=== PATIENT | male | born 1940 | race Caucasian/White ===

== ENCOUNTER 2017-05-26 01:06 | Day surgery (SDC) | payer MEDICARE ==
[2017-05-26] VITALS (12 sets, daily range): BP systolic 118–156; BP diastolic 66–81; PULSE 26–63; RESP 12–20; O2SAT 95–100
[~2017-05-26] VITALS: Ht 170.2 cm; Wt 79.8 kg
[~2017-05-26 01:06] MED LIST: ATRV10T PO; CHOL500011 PO; LUTE20CA8 PO; OMEG500C PO; PSYL798P2 PO; RIVA20TA PO; SELE200C PO; TRIA0.2525 PO; UBID100T7 PO; VIT1CAPS10 PO; VIT1TABL83 PO
[2017-05-26 09:38] LABS: BASOPHILS % (AUTO) 1.9 % (0-3); EOSINOPHILS % (AUTO) 1.4 % (0-5); MONOCYTES % (AUTO) 12.1 % (4-12); Mean Corpuscular Volume 89.1 fL (81-100); NEUTROPHILS % (AUTO) 54.2 % (40-74); Platelet Count 193 bil/L (150-400)
[2017-05-26 09:55] LABS: INR 1.03 ratio
[2017-05-26] MEDS ORDERED: CeFAZolin 2 Gm/50 mL D5W Duplex Bag IV ONE (10:45)
[2017-05-26] MEDS ORDERED: 0.9% Sodium Chloride 1,000 ML IV ONE (10:45)
[2017-05-26] MEDS ORDERED: CeFAZolin Inj 2 GM in IV Premix 1 EACH IV SCH (10:53)
--- NOTE | 2017-05-26 11:01 | NUR ---
Admitted for a cardiac ablation for SVT -admits in atrial flutter with a type 2 mobitz rhythm - rate is 29. 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 Patient and , "Yung" have spoken to Dr Epps about today's procedure and pacemaker rate.
[2017-05-26] MEDS ORDERED: Heparin 10,000 Unit/1,000 mL NS Premix IV ONE ×2 (11:07→13:39)
[2017-05-26] MEDS ORDERED: Heparin 1,000 Unit/mL 10 mL Inj ONE (11:08)
[2017-05-26] MEDS ORDERED: 0.9% Sodium Chloride 250 ML ONE (11:09)
[2017-05-26] MEDS ORDERED: fentaNYL-PF 50 mCg/mL 2 mL Inj ONE (12:05)
[2017-05-26] MEDS ORDERED: Bupivacaine-MPF 0.5% 30 mL Inj ONE (14:41)
[2017-05-26] MEDS ORDERED: Ondansetron 2 mg/mL 2 mL Inj IVPUSH PRN (15:25)
[2017-05-26] MEDS ORDERED: HYDROcodone-APAP 5-325 mg Tablet PO PRN (15:25)
--- NOTE | 2017-05-26 18:11 | NUR ---
Received Received from rags laborer at 1740. Right groin 2 hours post manual hold. No bleeding or hematoma. VSS. Tele paced. Denies pain. Ice pack applied. EKG and CXR done. Taking po fluids well. at bedside. Groin and arm precautions reviewed and verbalizes understanding. Continue to monitor per orders.
--- NOTE | 2017-05-26 18:19 | PROCED ---
[address] [address] PROCEDURE NOTE PATIENT: WEI BURGESS : 1940 MR#: [id number] ADMIT: 05/26/2017 JOB ID: [id number] DATE OF SERVICE: 05/26/2017 PREOPERATIVE DIAGNOSIS(ES): 1. Typical counterclockwise isthmus dependent flutter. 2. Mobitz II atrioventricular block. POSTOPERATIVE DIAGNOSIS(ES): 1. Sinus rhythm. 2. Mobitz II atrioventricular block. PROCEDURES PERFORMED: 1. Comprehensive electrophysiology study with left atrial pacing recording via the coronary sinus catheter. 2. Three-dimensional electroanatomic mapping using the CARTO 3 system. 3. Atrial flutter ablation (supraventricular tachycardia ablation; cavotricuspid isthmus ablation). 4. Fluoroscopy. SURGEON: Akin Epps M.D. electrophysiology attending physician. FINANCIAL AID: Brady Saldana PA-C. ANESTHESIA: Bolus dosing of Versed and fentanyl titrated to an acceptable level of sedation. INDICATIONS: The patient is a pleasant 76-year-old man with preserved LV function and now persistent symptomatic isthmus dependent typical flutter. After discussion of risks and benefits of catheter based mapping and ablation, he opted to proceed. PROCEDURAL DESCRIPTION: Following informed and signed, the patient was taken to the EP laboratory in a fasting state where he was prepped and draped in usual sterile fashion. The right inguinal region was infiltrated with 1% lidocaine. Then, using modified Seldinger technique with the aid of the ultrasound and with a great deal of difficulty, one 8-7 and one 6-[place] sheaths were inserted through the right femoral vein. A deflectable decapolar catheter was advanced to the coronary sinus with the most proximal bipolar at the os of the sinus. A Jeffery quadripolar catheter was advanced to the RV apex and a LiveWire 20 pole catheter was used to encircle the tricuspid annulus. The patient was in atrial flutter at the onset of the case. A J curve Smart Touch irrigated ablation catheter was brought to the field and used to create a three-dimensional electroanatomical mapping of the cavotricuspid isthmus and right atrium. Entrainment from the cavotricuspid isthmus showed the isthmus to be within the circuit with a short post pacing interval minus tachycardia shock cycle length of 7 msec. A linear series of ablations was performed from the ventricular to the IVC aspect of the cavotricuspid isthmus. During the process of doing so, the patient's flutter broke to sinus rhythm with rare conduction. We paced him from the ventricle. We then tested block across the isthmus and found there to be conduction across the isthmus in both directions. High voltage electrograms were targeted and with a great deal of difficulty drawing both the medial and the lateral line ultimately bidirectional block was achieved. A 20 minute waiting period was undertaken during which bidirectional block was reconfirmed. During the course of this study, we did complete a comprehensive electrophysiology study with right atrial pacing recording, right ventricular recording and His bundle recording, and left atrium coronary sinus catheter. All catheters and sheaths were removed. The patient was in 2:1 AV block and was stable otherwise. We therefore did not leave any temporary pacing wires while we placed his permanent pacemaker. We turned the room around and prepared for a dual-chamber pacemaker implantation. See separate dictated report for the details of that procedure. COMPLICATIONS: None. ESTIMATED BLOOD LOSS: Negligible. FINDINGS: 1. Baseline rhythm is atrial flutter. Post ablation, he is in sinus rhythm with an RR interval of 1946 msec, 2:1 AV block, QRS 103 msec, QT 475 msec. 2. Intracardiac intervals: HV interval 51 msec. 3. Retrograde conduction. No VA conduction was seen. 4. Cavotricuspid isthmus ablation as described above with bidirectional block. Specifically transisthmus time was 190 msec in the medial to lateral direction and 186 msec in lateral to medial direction. IMPRESSION: Successful cavotricuspid isthmus with ablation for typical isthmus flutter with above-noted transisthmus time. PLAN: 1. Bed rest x4 hours. 2. Continue anticoagulation with Xarelto for at least one month. 3. Proceed to dual-chamber pacemaker implantation for Mobitz II AV block. ATTENDING STATEMENT: Akin Epps MD, electrophysiology attending, was present for and supervised/performed all aspects of this procedure.
--- NOTE | 2017-05-26 18:24 | DRSVH ---
PROCEDURE: X-RAY CHEST ONE VIEW, PORTABLE ([id number]) INDICATIONS: For new leads placed TECHNIQUE: One view of the chest was acquired. COMPARISON: [facility], , CHEST 2VW, 04/05/2007, 10:10. FINDINGS: Surgical changes and devices: There is a dual-lead cardiac pacemaker. Lungs and pleura: No pleural effusions or pneumothorax. Lungs are clear. Mediastinum: Mediastinal contours appear normal. Heart size is normal. Bones and chest wall: No suspicious bony lesions. Overlying soft tissues appear unremarkable. IMPRESSION: No pneumothorax after new lead placement. Dictated by: Grace Quinn M.D. on 05/26/2017 at 18:22 Approved by: Grace Quinn M.D. on 05/26/2017 at 18:22
--- NOTE | 2017-05-26 18:41 | OP ---
[address] [address] OPERATIVE REPORT PATIENT: WEI BURGESS : 1940 MR#: [id number] ADMIT: 05/26/2017 JOB ID: [id number] DATE OF SURGERY: 05/26/2017 PREOPERATIVE DIAGNOSIS(ES): Mobitz II atrioventricular block. POSTOPERATIVE DIAGNOSIS(ES): Mobitz II atrioventricular block. PROCEDURES PERFORMED: 1. Dual-chamber pacemaker implantation. 2. Fluoroscopy. SURGEON: Akin Epps M.D., electrophysiology attending. PRINT ROOM WORKER: MACKENZIE Oliva. IMPLANTED DEVICES: 1. [employer] pulse generator, model [id number], serial #[id number]. 2. Right atrial lead [employer] 1252 cm, serial #[id number]. 3. RV lead [employer] 1258 cm, serial #[id number]. ANESTHESIA: Bolus dosing of Versed and fentanyl were utilized for an appropriate level of sedation. INDICATION: The patient is a pleasant 76-year-old man with preserved LV function who just completed atrial flutter ablation. He has Mobitz II AV block and is here for a dual-chamber pacemaker implantation after discussion of the risks and benefits. PROCEDURE DESCRIPTION: Following informed consent, the patient was taken to the EP laboratory in a fasting nonsedated state where he was prepped and draped in the usual fashion. The left infraclavicular region was infiltrated with 40 cc of a 50/50 mixture of bupivacaine and lidocaine. Once adequate anesthesia had been achieved, a 3 cm transverse incision was performed 2 cm below the left clavicle. Dissection was carried to the pectoralis fascia and a pocket was then fashioned using a combination of electrocautery and blunt dissection. Once adequate hemostasis had been achieved, access was gotten to the left axillary vein over the first rib with a micropuncture needle to deploy a 0.035, 3 mm J guidewire. Attempts to re-access this vessel were unsuccessful and I therefore double wired the access site to deploy two 0.35 J guidewires. Over the first of these wires, an 8-Uzbek tear-away sheath was advanced. Once the guidewire was removed, an active fixation lead was advanced to the RV outflow tract and ultimately RV apex. The lead was affixed in position using associated active fixation screw. It was connected to the external analyzer and demonstrated appropriately sensed R waves, impedance. Capture was checked to 10 V and there was no evidence of diaphragmatic stimulation. Attention was now paid to placement of the right atrial lead. Over the previously deployed J guidewire, another 8-Uzbek tear-away sheath was advanced. Once the guidewire was removed, an active fixation lead was advanced to the right atrial appendage. It was affixed in position using associated active fixation screw. Stability in the right atrial appendage was very tenuous and the lead dislodged on multiple occasions. I therefore placed the lead in the low right lateral atrium with excellent sensing threshold and stable impedances. Once the position and redundancy of both leads had been confirmed in multiple views, the leads were anchored to the prepectoralis fascia using their associated anchoring sleeves . The pocket was then copiously irrigated with antibiotic solution. The leads were connected to a generator. The generator was placed in the pocket and affixed to the floor of the pocket using 1-0 Ti-Cron suture. The incision was closed with running layers of absorbable suture. The wound was dressed with skin adhesive and a small dressing. At the end of procedure, the needle, sponge, and instrument counts were all correct. COMPLICATIONS: None. ESTIMATED BLOOD LOSS: Negligible. DEVICE MEASURED DATA: 1. Right atrial lead 4.5 mV, 510 ohms, 0.5 V at 0.4 msec. 2. RV lead, paced at 40 beats per minute to 580 ohms, 0.5 V at 0.4 msec. FINAL PROGRAM PARAMETERS: DDD 45 beats per minute. IMPRESSION: Successful dual-chamber pacemaker implantation. PLAN: 1. Stat portable chest x-ray. 2. PA and lateral chest x-ray in the morning. 3. Device check in a.m. 4. IV Ancef as well as Keflex x7 days. 5. Wound check in one week. ATTENDING STATEMENT: IAkin MD, electrophysiology attending was present for and supervised/performed all aspects of this procedure.
[2017-05-26] MEDS: 0.9% Sodium Chloride 1,000 ML IV SCH ×2 (18:47→20:25)
--- NOTE | 2017-05-26 19:59 | NUR ---
Recovery/Transfer No change in assessment. VSS. 100% Vpaced. Denies pain. Report to Va Pichardo RN. Bedrest complete at 1944. Transported to 2027 via bed with all belongings and in no distress by staff at 1950.
[2017-05-26] MEDS: CeFAZolin Inj 1 GM in IV Premix 1 EACH IV SCH (21:12)
[2017-05-27 03:10] VITALS: BP 132/74; PULSE 47; RESP 16; O2SAT 98
[2017-05-27] MEDS: CeFAZolin Inj 1 GM in IV Premix 1 EACH IV SCH (04:30)
--- NOTE | 2017-05-27 05:35 | NUR ---
Groin and Pacer Sites Groin and pacer sites C/D/I to assessment, mild tenderness to groin and no tenderness to pacer. Instructions for self-care written on whiteboard, verbalized to patient, and given via booklet for additional reading. Pt and family verbalized understanding. No c/o pain or discomfort this shift, pt denies any dizziness/lightheadedness on exertion. VSS, tele V-paced 50s.
[2017-05-27 07:31] VITALS: BP 151/78; PULSE 49; RESP 16; O2SAT 100
[2017-05-27 07:35] VITALS: PULSE 49
--- NOTE | 2017-05-27 08:02 | PCM.DIMED ---
Discharge Instructions Date of Service May 27, 2017 Dates of Hospitalization Discharge Diagnosis Discharge Diagnosis Intermittent 2nd and 3rd Degree AV Block Persistent Atrial Flutter Marked Bradycardia - 28 bpm Hypertension Diet Discharge Diet: Heart Healthy Activity Discharge Activity: Other (Keep incision dry one day. Do not extend left elbow high above shoulder for one month. Do not lift, push or pull more than 10 lbs with the left arm for one month. Do not sit in a hot tub, bath tub or pool for one week. .) Call your provider Call your provider for: Fever or Chills, Bleeding, Excessive diarrhea Patient Instructions Follow-up in: 1 week Follow-up with Mid-level in: 6 weeks Brady Saldana PA-C May 27, 2017 08:02
[2017-05-27] MEDS ORDERED: CEPH500C PO (08:05)
[2017-05-27] MEDS ORDERED: HYDR-4003 PO (08:07)
--- NOTE | 2017-05-27 08:45 | DIS ---
[address] [address] DISCHARGE SUMMARY PATIENT: WEI BURGESS : 1940 MR#: [id number] ADMIT: 05/26/2017 JOB ID: [id number] DIS: 05/27/2017 REASON FOR ADMISSION: Atrial flutter ablation and pacemaker implant. CHIEF COMPLAINT: Fatigue and lightheadedness from slow pulse. BRIEF HISTORY: The patient is a very pleasant and active 76-year-old man with a structurally normal heart. He has been known to have high grade, second and intermittent third degree AV block for about 10 years now. He has been a very athletic man and exercises regularly but denies near-syncope or syncope. He has been relatively asymptomatic and has declined a pacemaker implant but more recently has become concerned when he feels long pauses in his pulse. A recording once showed that during sleep he had a 13 second pause. More recently, he has been in persistent atrial flutter with intermittent, very slow pulse rates. He was advised of the availability of a flutter ablation to restore normal rhythm and then a pacemaker implant to restore proper AV synchrony and avoid the 2:1 AV block. He was admitted for that purpose. COURSE IN HOSPITAL: The patient was admitted to the [facility] and taken to the laborer electroplating, where he first underwent the EP study and atrial flutter ablation procedure. After that, a dual-chamber pacemaker was implanted without incident. He was taken back to the [facility] for recovery from sedation and then transferred up to the third floor [facility] for overnight telemetry and observation. In the morning he was ambulatory without difficulty. He had no bleeding or hematoma at the right femoral access site. The pacemaker site was closed and dry and there was no hematoma. Device evaluation showed excellent capture and sensing thresholds. Chest x-ray showed good lead positions and no pneumothorax. He felt well for discharge home. DISPOSITION: The patient was discharged home in good condition with a follow up appointment at the [facility] Cardiology office in one week. He was asked not to extend his left elbow high above his shoulder for one month and to not lift or push or pull more than 10 pounds with the left arm for one month. He was also asked not to sit in a bathtub, hot tub, or pool for one week to prevent infection. He will follow his usual heart healthy diet and take medications as prescribed. DISCHARGE MEDICATIONS: 1. Cephalexin 500 mg b.i.d. for one week. 2. Hydrocodone-acetaminophen 5-325 mg, 1 tablet q.4 hours p.r.n. pain, quantity 14, with no refills. 3. Atorvastatin 10 mg daily. 4. Vitamin D3 5000 units daily. 5. Lutein 40 mg daily. 6. Jasper-3 fish oil gel cap 500 mg daily. 7. Psyllium husk. 8. Metamucil powder 538 grams p.o. p.r.n. 9. Xarelto 20 mg q. p.m. 10. Selenium 200 mcg daily. 11. Triazolam 0.25 mg q.h.s. 12. Co Q10 100 mg daily. 13. Vitamin A/vitamin C/vitamin E/zinc (Preservation AREDS soft gel 1 capsule daily). 14. Vitamin B complex tablet 1 daily. FINAL DIAGNOSES: 1. Intermittent second degree and third degree AV block. 2. Persistent atrial flutter. 3. Marked bradycardia with rates often in the high 20s. 4. Hypertension. 5. Lightheadedness and occasional fatigue.
--- NOTE | 2017-05-27 11:03 | NUR ---
Discharge note Patient a/o x 4, c/o minor ache at incision site,Tylenol 325 mg given with good effect. Patient denies nausea or sob. OOB amb indep, steady gait. Tele and IV SL x 2 removed intact. Patient given teaching on pacemaker site care and restrictions, groin care, post op care, discharge info, med rec, info on new meds and prescriptions. All questions answered. [place] boarding pass faxed to [facility]. Patient taken to the car via wheelchair with all belongings and discharged home with .
--- NOTE | 2017-05-27 22:26 | DRSVH ---
PROCEDURE: X-RAY CHEST, TWO VIEWS ([id number]) INDICATIONS: For new lead placement TECHNIQUE: 2 views of the chest were acquired. COMPARISON: [facility], , CHEST 2VW, 04/05/2007, 10:10. FINDINGS: Surgical changes and devices: Dual chamber left cardiac pacer present in expected position. Lungs and pleura: No pleural effusions or pneumothorax. Lungs are clear. Mediastinum: Mediastinal contours are normal. Heart size is normal. Bones and chest wall: No suspicious bony abnormalities. Soft tissues appear unremarkable. IMPRESSION: No immediate complications status post cardiac pacemaker placement. Dictated by: Clinton Ken [facility] Interpreted: Frank Ocasio MD on 05/27/2017 at 10:45 Approved by: Frakn Ocasio M.D. on 05/27/2017 at 22:24
== END 2017-05-27 10:08 | disposition home or self-care (01) ==
LOC: SOUO 01:06 → PCC 19:50 → SOUO 05-27 10:08
PROVIDERS: ATTEND Internal Medicine Cardiovascular Disease
DX: I48.3 Typical atrial flutter (principal); I44.1 Atrioventricular block, second degree; Z79.01 Long term (current) use of anticoagulants; E78.5 Hyperlipidemia, unspecified; Z79.82 Long term (current) use of aspirin; I10 Essential (primary) hypertension
CPT/HCPCS: 33208; 36415; 71010; 71020; 80048; 85025; 85610; 93005; 93613; 93621; 93653; 99152; 99153; C1730; C1731; C1732; C1769; C1785; C1892; C1893; C1898; J0131; J0690; J1644; J2250; J2310; J3010; J7050